=== PATIENT | female | born 1960 | race Caucasian/White ===

== ENCOUNTER 2017-05-21 12:37 | Emergency (ER) | payer OTHER ==
[~2017-05-21] VITALS: Ht 162.6 cm; Wt 110.0 kg
[~2017-05-21 12:37] MED LIST: ATORVASTATIN CA80 MG PO; CALCIUM ANTAC1000 MG PO; FLEXERIL10 MG PO; HUMALOG100 UNIT/2 SC; LANTUS 3 M100 UNITS1 SC; LISINOPRIL5 MG PO; MOTRIN600 MG PO; OMEGA-3 ACID ETH1 GM PO; VITAMIN D22000 UNIT PO
[2017-05-21] MEDS ORDERED: MOTRIN800 MG PO (13:51)
[2017-05-21] MEDS ORDERED: FLEXERIL10 MG PO (13:51)
[2017-05-21 14:11] VITALS: BP 121/59
== END 2017-05-21 14:19 | disposition home or self-care (01) ==
LOC: EME 12:37
DX: S20.212A Contusion of left front wall of thorax, initial encounter (principal); S20.211A Contusion of right front wall of thorax, initial encounter; S09.90XA Unspecified injury of head, initial encounter; S19.9XXA Unspecified injury of neck, initial encounter; V49.40XA Driver injured in collision with unspecified motor vehicles in traffic accident, initial encounter; Y92.410 Unspecified street and highway as the place of occurrence of the external cause; M54.9 Dorsalgia, unspecified; E11.9 Type 2 diabetes mellitus without complications; Z79.4 Long term (current) use of insulin
CPT/HCPCS: 71020; 99281; 99283